=== PATIENT | female | born 1995 | race Caucasian/White ===

== ENCOUNTER 2018-10-03 19:47 | Emergency (ER) | payer SELFPAY ==
--- NOTE | 2018-10-03 22:38 | ER Document Report ---
HPI - HPI Time Seen by Provider: 10/03/18 22:36 Pain Level: 4 Context: Patient is a 23-year-old female that comes emergency department for chief complaint of blood in her urine, cramping in her lower abdomen, and developing pain in both sides of her lower back. She states she feels like this is developing urinary tract infection. She denies vomiting, fever, states she had vague nausea earlier but now she feels hungry and feels fine otherwise. She denies history of kidney stones. She has had a kidney infection once in the past. She denies vaginal bleeding or discharge. - REPRODUCTIVE Reproductive: DENIES: : Past Medical History - General Information source: Patient - Social History Smoking Status: Never Smoker Drug Abuse: None Lives with: Family Family History: Reviewed & Not Pertinent Surgical Hx: Negative - Immunizations Hx Diphtheria, Pertussis, Tetanus Vaccination: Yes Vertical Provider Document - CONSTITUTIONAL General Appearance: WD/WN, No Apparent Distress - INFECTION CONTROL TRAVEL OUTSIDE OF THE [place] IN LAST 30 DAYS: No - HEENT HEENT: Atraumatic, Normal ENT Exam, Normocephalic - NECK Neck: Normal Inspection - RESPIRATORY Respiratory: Breath Sounds Normal, No Respiratory Distress - CARDIOVASCULAR Cardiovascular: Regular Rate, Regular Rhythm - GI/ABDOMEN Gastrointestinal: Abdomen Soft, Abdomen Non-Tender. negative: Abdomen Tender, Abdominal Guarding - BACK Back: Normal Inspection. negative: CVA Tenderness-Right, CVA Tenderness-Left - MUSCULOSKELETAL/EXTREMETIES Musculoskeletal/Extremeties: MAEW, FROM, Non-Tender - NEURO Level of Consciousness: Awake, Alert, Appropriate Motor/Sensory: No Motor Deficit, No Sensory Deficit - DERM Integumentary: Warm, Dry, No Rash Course - Re-evaluation Re-evalutation: Patient has no CVA tenderness. Her abdomen is soft and benign. She is alert and well-appearing. Unremarkable vital signs. No vomiting or fever. Urine does suggest infection although there is no hematuria. Because of patient's reported abdominal pain, flank pain, I did recommend a pelvic exam as well but patient declined. She states she would prefer to be treated for UTI first and she will return or follow-up if she worsens. I did discuss return precautions. Patient states understanding and agreement. - Vital Signs Vital signs: Temp Pulse Resp BP Pulse Ox 98.0 F 76 12 139/68 H 98 10/03/18 20:37 10/03/18 20:37 10/03/18 20:37 10/03/18 20:37 10/03/18 20:37 Discharge - Discharge Clinical Impression: Urinary symptom or sign, Lower abdominal pain Condition: Stable Disposition: HOME, SELF-CARE Additional Instructions: Your evaluation is most consistent with a urinary tract infection. Take the Keflex antibiotics as prescribed, after you complete this take the Diflucan to avoid yeast infection. Follow-up with primary care. Return for any concerning or worsening symptoms including increased pain, vomiting, fever, or any other concerning or worsening symptoms. Prescriptions: Fluconazole [Diflucan] 150 mg PO ONCE PRN #1 tablet PRN Reason: Cephalexin Monohydrate [Keflex 500 mg Capsule] 500 mg PO BID 7 Days #14 capsule
[2018-10-03 23:01] LABS: APPEARANCE,URINE CLEAR; BILIRUBIN,URINE NEGATIVE (NEGATIVE); COLOR,URINE COLORLESS; GLUCOSE, URINE NEGATIVE (NEGATIVE); KETONES,URINE NEGATIVE (NEGATIVE); LEUKOCYTE ESTERASE,URINE SMALL (NEGATIVE); NITRITE,URINE NEGATIVE (NEGATIVE); PROTEIN,URINE NEGATIVE (NEGATIVE); URINE SPECIFIC GRAVITY 1.002; UROBILINOGEN,URINE NEGATIVE mg/dL (<2.0)
[2018-10-03] MEDS ORDERED: CEPHALEXIN 500 MG CAPSULE PO ONE (23:27)
[2018-10-03 23:40] VITALS: BP 126/62
== END 2018-10-03 23:36 | disposition home or self-care (01) ==
LOC: ER 19:47
DX: R39.198 Other difficulties with micturition (principal); R10.30 Lower abdominal pain, unspecified; R31.9 Hematuria, unspecified; M54.5 Low back pain; R11.0 Nausea
CPT/HCPCS: 81001; 81025; 87086; 87088; 87186; 99283

== ENCOUNTER 2019-01-19 19:27 | Emergency (ER) | payer SELFPAY ==
[2019-01-19] MEDS ORDERED: ACETAMINOPHEN 325 MG TABLET PO ONE (20:10)
[2019-01-19] MEDS ORDERED: NORMAL SALINE IV ONE (20:10)
[2019-01-19] MEDS ORDERED: ONDANSETRON HCL INJ/PF 4 MG/2 ML SDV IV ONE (20:11)
--- NOTE | 2019-01-19 20:12 | ER Document Report ---
ED Medical Screen (RME) - General Chief Complaint: Fever Stated Complaint: FEVER Time Seen by Provider: 01/19/19 20:07 Mode of Arrival: Ambulatory Information source: Patient Notes: Patient presents complaining of cough for the past 5 days with fever that started yesterday. Patient reports nausea and vomiting x1 episode and some right upper abdominal tenderness. I have greeted and performed a rapid initial assessment of this patient. A comprehensive ED assessment and evaluation of the patient, analysis of test results and completion of the medical decision making process will be conducted by additional ED providers. TRAVEL OUTSIDE OF THE [place] IN LAST 30 DAYS: No - Related Data Allergies/Adverse Reactions: coconut Allergy (Verified 01/19/19 20:11) Past Medical History - Social History Chew tobacco use (# tins/day): No Frequency of alcohol use: Social Drug Abuse: None Renal/ Medical History: Denies: Hx Peritoneal Dialysis - Immunizations Hx Diphtheria, Pertussis, Tetanus Vaccination: Yes Physical Exam - Vital signs Vitals: Temp Pulse Resp BP 102.8 F H 119 H 18 107/59 L 01/19/19 19:27 01/19/19 19:27 01/19/19 19:27 01/19/19 19:27 - Respiratory Respiratory status: No respiratory distress Breath sounds: Nonproductive cough - Cardiovascular Rhythm: Tachycardia Heart sounds: S1 appreciated, S2 appreciated Course - Vital Signs Vital signs: Temp Pulse Resp BP Pulse Ox 102.8 F H 119 H 18 107/59 L 01/19/19 19:27 01/19/19 19:27 01/19/19 19:27 01/19/19 19:27
--- NOTE | 2019-01-19 21:12 | RADIOLOGY REPORT (SQ) ---
EXAM DESCRIPTION: CLINICAL HISTORY: 23 years Female, fever, cough COMPARISON: None. FINDINGS: Cardiomediastinal silhouette is not enlarged. No suspicious acute lung pleural bone abnormality. IMPRESSION: Negative chest x-ray.
[2019-01-19 21:28] LABS: ABSOLUTE LYMPHOCYTES (AUTO) 0.5 10^3/uL (0.5-4.7); ABSOLUTE MONOCYTES (AUTO) 0.5 10^3/uL (0.1-1.4); ABSOLUTE NEUT (AUTO) 2.4 10^3/uL (1.7-8.2); BASOPHILS % (AUTO) 0.2 % (0-2); HEMATOCRIT 39.2 % (36.0-47.0); HEMOGLOBIN 13.7 g/dL (12.0-15.5); LYMPHOCYTES % (AUTO) 15.1 % (13-45); MEAN CORPUSCULAR HEMOGLOBIN 30.7 pg (27.0-33.4); MEAN CORPUSCULAR HGB CONC 34.9 g/dL (32.0-36.0); MEAN CORPUSCULAR VOLUME 88 fl (80-97); MONOCYTES % (AUTO) 15.4 % (3-13); PLATELET COUNT 153 10^3/uL (150-450); RED BLOOD COUNT 4.46 10^6/uL (3.72-5.28); RED CELL DISTRIBUTION WIDTH 12.5 % (11.5-14.0); SEGMENTED NEUTROPHILS % (AUTO) 69.3 % (42-78); TOTAL CELLS COUNTED % (AUTO) 100 %; WHITE BLOOD COUNT 3.5 10^3/uL (4.0-10.5)
[2019-01-19] MEDS ORDERED: KETOROLAC TROMETHAMINE INJ/PF 30 MG/1 ML SDV IV ONE (22:43)
--- NOTE | 2019-01-19 22:44 | ER Document Report ---
ED Fever - General Chief Complaint: Fever Stated Complaint: FEVER Time Seen by Provider: 01/19/19 20:07 Mode of Arrival: Ambulatory Notes: Patient is a 23-year-old female that comes to the emergency department for chief complaint of fever since yesterday. She is also had a cough for about 5 days, mainly nonproductive. She denies congestion, sore throat, dysuria, flank pain. She states she has had some abdominal pain, mainly on the mid right side, she threw up once, she denies any particular abdominal pain. She has had intermittent headaches. She has been exposed to people who have had influenza. She has not had the influenza vaccine. She takes oral contraceptives, has had tonsils and adenoids removed, she denies medical history otherwise. Significant other at bedside. TRAVEL OUTSIDE OF THE [place] IN LAST 30 DAYS: No - Related Data Allergies/Adverse Reactions: coconut Allergy (Verified 01/19/19 20:11) Past Medical History - General Information source: Patient - Social History Smoking Status: Former Smoker Chew tobacco use (# tins/day): No Frequency of alcohol use: Social Drug Abuse: None Lives with: Family Family History: Reviewed & Not Pertinent Patient has suicidal ideation: No Patient has homicidal ideation: No Renal/ Medical History: Denies: Hx Peritoneal Dialysis - Immunizations Hx Diphtheria, Pertussis, Tetanus Vaccination: Yes Review of Systems - Review of Systems Constitutional: See HPI EENT: No symptoms reported Cardiovascular: No symptoms reported Respiratory: See HPI Gastrointestinal: No symptoms reported Genitourinary: No symptoms reported Female Genitourinary: No symptoms reported Musculoskeletal: See HPI Skin: No symptoms reported Hematologic/Lymphatic: No symptoms reported Neurological/Psychological: No symptoms reported Physical Exam - Vital signs Vitals: Temp Pulse Resp BP 102.8 F H 119 H 18 107/59 L 01/19/19 19:27 01/19/19 19:27 01/19/19 19:27 01/19/19 19:27 - Notes Notes: GENERAL: Alert, interacts well. No acute distress. HEAD: Normocephalic, atraumatic. EYES: Pupils equal, round, and reactive to light. Extraocular movements intact. ENT: Oral mucosa moist, tongue midline. Oropharynx unremarkable. Airway patent. Occasional coughing, congested. NECK: Full range of motion. Supple. Trachea midline. No nuchal rigidity. LUNGS: Clear to auscultation bilaterally, no wheezes, rales, or rhonchi. No respiratory distress. HEART: Regular rate and rhythm. No murmur ABDOMEN: Soft, non-tender. Non-distended. Bowel sounds present in all 4 quadrants. GENITOURINARY: Deferred EXTREMITIES: Moves all 4 extremities spontaneously. No edema, normal radial and dorsalis pedis pulses bilaterally. No cyanosis. BACK: no cervical, thoracic, lumbar midline tenderness. No saddle anesthesia, normal distal neurovascular exam. Moves all extremities in full range of motion. NEUROLOGICAL: Alert and oriented x3. Normal speech. Cranial nerves II through XII grossly intact. PSYCH: Normal affect, normal mood. SKIN: Warm, dry, normal turgor. No rashes or lesions noted. Course - Re-evaluation Re-evalutation: On my exam patient is well-appearing. Clear lungs but occasional cough, no hypoxia, no tachycardia. Her blood pressure is borderline low but patient is very petite. I suspect this is close to her baseline. She states she feels good now. She did have some generalized aches that resolved with Toradol and Tylenol. She is also received IV fluids. Influenza negative, chest x-ray negative, CBC nonspecific without leukocytosis or shift, chemistry unremarkable, urinalysis unremarkable. Patient with no nuchal rigidity, no current headache, soft benign abdomen, unremarkable skin exam. Based on her worsening productive cough and development of fever with worsening cough symptoms I do still clinically suspect an underlying pneumonia given her fever and symptoms with negative work-up otherwise. Blood cultures and urine cultures pending. Patient requested us to cancel her hCG, I was informed of this by the nursing staff, patient emphatically states she is not . Patient was given Rocephin, doxycycline, is placed on doxycycline at home, discussed expectations, follow-up, and return precautions. Patient states understanding and agreement with plan. Well-appearing and stable at time of discharge. - Vital Signs Vital signs: Temp Pulse Resp BP Pulse Ox 98.0 F 76 15 97/55 L 97 01/20/19 02:48 01/20/19 02:48 01/20/19 02:48 01/20/19 02:48 01/20/19 02:48 - Laboratory Result Diagrams: 01/19/19 21:12 01/19/19 23:50 Laboratory results interpreted by me: 01/19/19 01/19/19 01/20/19 21:12 23:50 00:10 WBC 3.5 L Smyth % (Auto) 15.4 H Potassium 3.3 L Carbon Dioxide 20 L Calcium 8.0 L Urine Blood MODERATE H Discharge - Discharge Clinical Impression: Productive cough Fever Qualifiers: Fever type: unspecified Qualified Code(s): R50.9 - Fever, unspecified Condition: Stable Disposition: HOME, SELF-CARE Additional Instructions: Your evaluation is most consistent with a developing pneumonia. Take the antibiotics as prescribed to completion. We do have blood and urine cultures growing in our lab, you will be contacted for any concerning results. Rest, drink plenty of fluids, take Tylenol or ibuprofen for fever and body aches. Follow-up with primary care. Come back if you are worse including difficulty breathing, vomiting, spiking fevers, or failure to improve as expected. Prescriptions: Doxycycline Hyclate 100 mg PO BID #14 capsule Forms: Return to Work
[2019-01-20 00:05] LABS: VENOUS BLOOD BASE EXCESS -2.7 mmol/L; VENOUS BLOOD HCO3 22.4 mmol/L (20-32); VENOUS BLOOD PCO2 40.2 mmHg (35-63); VENOUS BLOOD PH 7.36 (7.30-7.42)
[2019-01-20 00:31] LABS: APPEARANCE,URINE SLIGHTLY-CLOUDY; BILIRUBIN,URINE NEGATIVE (NEGATIVE); COLOR,URINE YELLOW; GLUCOSE, URINE NEGATIVE (NEGATIVE); KETONES,URINE NEGATIVE (NEGATIVE); PROTEIN,URINE NEGATIVE (NEGATIVE); URINE SPECIFIC GRAVITY 1.009; UROBILINOGEN,URINE NEGATIVE mg/dL (<2.0)
[2019-01-20 00:39] LABS: ALBUMIN 3.9 g/dL (3.5-5.0); ALKALINE PHOSPHATASE 60 U/L (38-126); ANION GAP 15 (5-19); ASPARTATE AMINO TRANSFERASE 23 U/L (14-36); BILIRUBIN,DIRECT 0.1 mg/dL (0.0-0.4); BILIRUBIN,TOTAL 0.7 mg/dL (0.2-1.3); BLOOD UREA NITROGEN 8 mg/dL (7-20); CARBON DIOXIDE 20 mmol/L (22-30); CHLORIDE 104 mmol/L (98-107); GLUCOSE 87 mg/dL (75-110); POTASSIUM 3.3 mmol/L (3.6-5.0); TOTAL PROTEIN 6.8 g/dL (6.3-8.2)
[2019-01-20 00:48] LABS: A TYPE INFLUENZA AG NEGATIVE (NEGATIVE); B INFLUENZA AG NEGATIVE (NEGATIVE)
[2019-01-20] MEDS ORDERED: DOXYCYCLINE HYCLATE 100 MG TABLET PO ONE (01:13)
[2019-01-20] MEDS ORDERED: CEFTRIAXONE 1 GM/D5W RTU 1 GM/50 ML RTUPB IV ONE (01:13)
[2019-01-20 02:47] VITALS: BP 97/55
== END 2019-01-20 02:48 | disposition home or self-care (01) ==
LOC: ER 19:27
DX: R50.9 Fever, unspecified (principal); R05 Cough; R10.9 Unspecified abdominal pain; R11.10 Vomiting, unspecified; R51 Headache; Z20.828 Contact with and (suspected) exposure to other viral communicable diseases; Z87.891 Personal history of nicotine dependence; Z79.3 Long term (current) use of hormonal contraceptives; Z91.018 Allergy to other foods
CPT/HCPCS: 99283; 96361; 96375; 96365; 36415; 87040; 87086; 85025; 80053; 81001; 82803; 83605; 87804; 71046; J1885; J7030; J0696

== ENCOUNTER 2020-01-04 21:28 | Emergency (ER) | payer BC ==
--- NOTE | 2020-01-04 23:06 | ER Document Report ---
ED Medical Screen (RME) - General Stated Complaint: STD CHECK Time Seen by Provider: 01/04/20 23:01 Mode of Arrival: Ambulatory Information source: Patient Notes: HPI; 24-year-old female presents to the emergency room complaining of vaginal blisters for the past 3 to 4 days. States partner with the same symptoms. Also complaining of discharge. Also complains of dysuria. LMP over a month ago. Possible . PE: Alert and oriented x3. Lungs: Clear to auscultation without rales, rhonchi, wheezes. Heart: Regular rate rhythm without murmurs, rubs, gallops. Unable to do full exam in triage. I have greeted and performed a rapid initial assessment of this patient. A comprehensive ED assessment and evaluation of the patient, analysis of test results and completion of the medical decision making process will be conducted by additional ED providers. I have specifically instructed the patient or family members with the patient to immediately return to any nursing staff should anything change in the patient's condition or with their chief complaint. TRAVEL OUTSIDE OF THE [place] IN LAST 30 DAYS: No - Related Data Allergies/Adverse Reactions: coconut Allergy (Verified 01/19/19 20:11) Past Medical History Renal/ Medical History: Denies: Hx Peritoneal Dialysis - Immunizations Hx Diphtheria, Pertussis, Tetanus Vaccination: Yes Physical Exam - Vital signs Vitals: Temp Pulse Resp BP Pulse Ox 98.1 F 75 16 113/68 100 01/04/20 21:59 01/04/20 21:59 01/04/20 21:59 01/04/20 21:59 01/04/20 21:59 Course - Vital Signs Vital signs: Temp Pulse Resp BP Pulse Ox 98.1 F 75 16 113/68 100 01/04/20 21:59 01/04/20 21:59 01/04/20 21:59 01/04/20 21:59 01/04/20 21:59
[2020-01-04 23:56] LABS: APPEARANCE,URINE CLEAR; BILIRUBIN,URINE NEGATIVE (NEGATIVE); COLOR,URINE YELLOW; GLUCOSE, URINE NEGATIVE (NEGATIVE); KETONES,URINE NEGATIVE (NEGATIVE); LEUKOCYTE ESTERASE,URINE TRACE (NEGATIVE); NITRITE,URINE NEGATIVE (NEGATIVE); PROTEIN,URINE NEGATIVE (NEGATIVE); URINE SPECIFIC GRAVITY 1.011; UROBILINOGEN,URINE NEGATIVE mg/dL (<2.0)
--- NOTE | 2020-01-05 01:42 | ER Document Report ---
ED General - General Stated Complaint: STD CHECK Time Seen by Provider: 01/04/20 23:01 Primary Care Provider: [facility] [Provider Group] - Follow up as needed Mode of Arrival: Ambulatory TRAVEL OUTSIDE OF THE [place] IN LAST 30 DAYS: No - HPI Notes: 24-year-old female presents with concerns for STD. Patient has painful ulcerations to her vagina. She describes them as starting off as sores, she does not appreciate any blister like appearance. States that when she urinates this increases the pain when the urine touches the ulcers. She states that her boyfriend told her that he has "a mystery spot" on his penis, she has not yet seen the lesions as he is currently in [place]. She denies vaginal discharge. States that her last menstrual period was over a month ago. - Related Data Allergies/Adverse Reactions: coconut Allergy (Verified 01/05/20 01:37) Past Medical History - General Information source: Patient - Social History Smoking Status: Current Every Day Smoker Family History: Reviewed & Not Pertinent Renal/ Medical History: Denies: Hx Peritoneal Dialysis - Immunizations Hx Diphtheria, Pertussis, Tetanus Vaccination: Yes Review of Systems - Review of Systems Constitutional: denies: Fever EENT: No symptoms reported Cardiovascular: No symptoms reported Respiratory: No symptoms reported Gastrointestinal: No symptoms reported Genitourinary: denies: Dysuria Female Genitourinary: See HPI Musculoskeletal: No symptoms reported Skin: No symptoms reported Hematologic/Lymphatic: No symptoms reported Neurological/Psychological: No symptoms reported Physical Exam - Vital signs Vitals: Temp Pulse Resp BP Pulse Ox 98.1 F 75 16 113/68 100 01/04/20 21:59 01/04/20 21:59 01/04/20 21:59 01/04/20 21:59 01/04/20 21:59 - General General appearance: Appears well, Alert In distress: None - HEENT Head: Normocephalic, Atraumatic Extraocular movements intact: Yes Pupils: PERRL - Respiratory Respiratory status: No respiratory distress - Cardiovascular Rhythm: Regular - Abdominal Tenderness: Nontender - Genitourinary Notes: Exam performed with nurse billet checker present. Patient has a shallow based raised erythematous ulceration to the left labia majora. There is a similar small ulceration below this. There is additionally a vesicle present superior to this. Patient had discharge present in the vaginal vault. There appeared to be additional lesions on the cervix with some friability. No cervical motion tenderness, no adnexal tenderness. - Extremities General upper extremity: Normal ROM General lower extremity: Normal ROM - Neurological Neuro grossly intact: Yes Cognition: Normal Orientation: AAOx4 - Psychological Associated symptoms: Normal affect - Skin Skin Temperature: Warm Course - Re-evaluation Re-evalutation: 24-year-old female with painful ulceration to her vagina, apparently partner has a similar appearing lesion. On exam patient has erythematous/tender shallow based ulceration with an additional vesicular appearing lesion to the labia majora, similar. Lesions on the cervix with cervical discharge present. I discussed with patient that her lesions are most consistent with herpes simplex. Additional swabs have been obtained to test for concurrent STDs. Exam not consistent with PID currently. 01/05/20 03:50 Pelvic swabs have resulted. Negative chlamydia/gonorrhea. There is 4+ bacteria and white blood cells, will consider this evidence of BV. No trichomonas. Patient was updated on the results of the swabs. She was able to obtain a picture from her significant other of his lesions which was reviewed at bedside. He has multiple vesicular lesions at the base of his penis with erythematous base, clinically HSV. I discussed with patient again that her lesions are consistent with HSV. We discussed acute and recurrent management. I gave her prescription for Valtrex for first outbreak, along with a prescription if she has recurrence as she has not yet established with a primary care doctor. We discussed multiple avenues for her to obtain a primary care doctor. She verbalized understanding. Return precautions given, stable at time of discha rge. - Vital Signs Vital signs: Temp Pulse Resp BP Pulse Ox 98.1 F 69 16 116/61 98 01/05/20 01:35 01/05/20 04:14 01/05/20 04:14 01/05/20 04:14 01/05/20 04:14 - Laboratory Laboratory results interpreted by me: 01/04/20 23:32 Ur Leukocyte Esterase TRACE H Discharge - Discharge Clinical Impression: Bacterial vaginitis Genital herpes Qualifiers: Herpes simplex infection site: vulvovaginitis Qualified Code(s): A60.04 - Herpesviral vulvovaginitis Disposition: HOME, SELF-CARE Additional Instructions: Begin Valtrex, 1 g twice a day for 10 days. I have also provided you prescription if a recurrence occurs. Also begin Flagyl for bacterial vaginosis, do not drink any alcohol while taking this medication. Please establish with primary care doctor. You may go to the health department, [facility] or [facility] are good resources to start with Prescriptions: Metronidazole [Flagyl 500 mg Tablet] 500 mg PO BID 7 Days #14 tablet Valacyclovir HCl [Valtrex] 1,000 mg PO BID 10 Days #40 tablet Valacyclovir HCl [Valtrex 500 Mg Tablet] 500 mg PO BID 3 Days #6 tablet Referrals: [facility] [Provider Group] - Follow up as needed
[2020-01-05 02:36] LABS: BACTERIA (WET MOUNT) 4+ BACTERIA SEEN; EPITHELIALS (WET MOUNT) 3+ EPITHELIALS SEEN; RBCS (WET MOUNT) NO RBCS SEEN; T.VAGINALIS (WET MOUNT) NO TRICHOMONAS SEEN; WBCS (WET MOUNT) 4+ WBCS SEEN; YEAST (WET MOUNT) NO YEAST SEEN
[2020-01-05 03:45] LABS: CHLAM PCR NOT DETECTED (NOT DETECT)
[2020-01-05 04:15] VITALS: BP 116/61
== END 2020-01-05 04:14 | disposition home or self-care (01) ==
LOC: ER 21:28
DX: A60.04 Herpesviral vulvovaginitis (principal); N76.0 Acute vaginitis; B96.89 Other specified bacterial agents as the cause of diseases classified elsewhere; F17.200 Nicotine dependence, unspecified, uncomplicated; Z91.018 Allergy to other foods
CPT/HCPCS: 81001; 81025; 87210; 87491; 87591; 99284